=== PATIENT | female | born 1940 | race Two or more races ===

== ENCOUNTER 2018-06-29 12:45 | Inpatient (IN) | payer OTHER ==
[~2018-06-29] VITALS: Ht 160 cm; Wt 72.6 kg
[2018-06-29] MEDS ORDERED: LISINOPRIL20 MG PO (16:18)
[2018-07-09] MEDS ORDERED: PANTOPRAZOLE SO40 MG PO (13:54)
[2018-07-09] MEDS ORDERED: TRAM1TAB98 PO (13:55)
[2018-07-09] MEDS ORDERED: Intestinex CAP PO (13:55)
== END 2018-07-09 14:56 | disposition home or self-care (01) | DRG 331 ==
LOC: SURG 07-06 09:55 → O/R 07-06 09:55 → RECOVERY 07-06 11:30 → SURG 07-06 19:20
PROVIDERS: Surgery
PROC: 07TH4ZZ Resection of Right Inguinal Lymphatic, Percutaneous Endoscopic Approach (ICD-10-PCS; 2018-07-06)
PROC: 0DTF4ZZ Resection of Right Large Intestine, Percutaneous Endoscopic Approach (ICD-10-PCS; principal; 2018-07-06 11:30)
DX: C18.2 Malignant neoplasm of ascending colon (principal); I11.9 Hypertensive heart disease without heart failure; R73.01 Impaired fasting glucose

== ENCOUNTER 2018-06-29 19:06 | Outpatient (CLI) | payer OTHER ==
[~2018-06-29 19:06] MED LIST: LISINOPRIL20 MG PO
== END 2018-06-29 19:30 | disposition home or self-care (01) ==
LOC: LAB 19:06
DX: D69.6 Thrombocytopenia, unspecified (principal)